=== PATIENT | male | born 1970 | race Caucasian/White ===

== ENCOUNTER 2020-03-09 15:50 | Emergency (ER) | payer BC, SELFPAY ==
--- NOTE | ~2020-03-09 | XR_ITS ---
EXAMINATION: XR foot RT min 3V DATE: 03/09/2020 16:16 INDICATION: Heel pain post fall in the shower. TECHNIQUE: Dorsoplantar, two oblique and lateral views of the right foot were obtained. COMPARISON: Right foot radiographs dated 04/01/2017 FINDINGS: Bone alignment is normal. No fracture. Extensive scattered bulky enthesophytes including at the [place] origin of the Achilles tendon and plantar aponeurosis, at the lateral base of the first proximal phalanx at the tip of the lateral malleolus and at the dorsal capsule insertions of the tarsal bones . Additional small enthesopathic ossicle in the occipital plantar aponeurosis. Soft tissues are unrem arkable. IMPRESSION: 1. Stable appearance of prominent scattered enthesophytes throughout the right foot. No acute osseous abnormality. Reviewed, dictated and finalized at location A.
[2020-03-09 16:00] VITALS: BP 180/86; PULSE 90; RESP 20; TEMP 36.7; O2SAT 99
--- NOTE | 2020-03-09 16:12 | ED.GENADULT ---
HPI - General Adult General Chief complaint: Extremity Injury, Lower Stated complaint: lower extremity/pain and swelling Time Seen by Provider: 03/09/20 16:13 Source: patient and RN notes reviewed Limitations: no limitations History of Present Illness HPI narrative: 50-year-old male presents today with complaints of right heel-foot pain and swelling for the past 3 day. Mikhail says he was hit on the heel of RT foot with a grocery cart causing injury to RT heel-foot. Advil, last several hours ago with little relief. History of a non-mobile bony prominence area on Achilles tendon causing pain when he wears his working boots. Hurts to bear weight. No radiation of pain. No numbness, tingling, or loss of mobility. Exacerbating factor applying weight. Denies inability to bear weight. Denies discoloration. Denies suspect foreign body. Denies fever or chills. The patient reports he have not been diagnosed with COVID-19. The patient reports he is not waiting for the results of a COVID-19 lab test. The patient reports he do not have fever, chills, weakness, or fatigue. The patient reports he do not have a new or worsening cough or shortness of breath. Denies chest pain. The patient reports he do not have any rhinorrhea, congestion, sore throat, loss of taste, nausea, vomiting, abdominal pain, and diarrhea. Tolerating po intake well. Denies recent traveling. Denies concerns for COVID-19 or exposures been home with limited outdoor exposure except for essential household needs, work, and return home. At this time, patient is not suspected of having COVID-19. Some parts of this dictation were generated by voice recognition software and may contain typographical and/or grammatical inaccuracies. Related Data Allergies Allergy/AdvReac Type Severity Reaction Status Date / Time No Known Allergies Allergy Unverified 09/06/17 13:31 Review of Systems Review of Systems: Narrative: CONSTITUTIONAL: Denies fever, chills, sweats. EYES: Denies visual changes, redness, discharge. ENT: Denies rhinorrhea, congestion, sore throat, otalgia. CARDIOVASCULAR: Denies chest pain, palpitations, edema. RESPIRATORY: Denies dyspnea, wheezing, cough. GASTROINTESTINAL: Denies abdominal pain, nausea, vomiting, diarrhea. GENITOURINARY: Denies dysuria, hematuria, abnormal discharge. SKIN: Denies rash or itching. MUSCULOSKELETAL: Denies acute back pain or myalgia. Complains of pain and swelling to right heel-foot. NEUROLOGIC: Denies numbness or focal weakness. PSYCHIATRIC: Denies anxiety or depression. All other systems reviewed are negative, except as documented in HPI and below. [facility] Past Medical History Medical History (Updated 03/10/20 @ 00:00 by Nan Lyons) Back pain Back pain with history of spinal surgery Knee pain Morbid obesity Surgical History Surgical History (Updated 03/09/20 @ 17:00 by VITALIY Lucio) History of arthroscopic knee surgery Right knee History of knee surgery Left knee History of spinal surgery Family History Family History (Updated 03/09/20 @ 17:00 by VITLAIY Lucio) Father Acute myocardial infarction Mother Acute myocardial infarction Diabetes mellitus Social History Social History (Updated 03/09/20 @ 17:01 by VITALIY Lucio) Smoking status: Never smoker Tobacco type: cigarettes Second hand tobacco smoke exposure: Yes Alcohol intake: current Substance use: never Living arrangements: with family Occupation/Education: occupation Gender identity (if verbalized by the patient): Male Sexual Orientation (if Verbalized by the Patient): Straight or Heterosexual Comments At time of signature, agree with nurse past medical, surgical, social, and family history. There is relevant patient's past medical history pertinent to the presenting complaint, no relevant family history pertinent to the presenting complaint. Exam Narrative: Exam Narrative: GEN
[2020-03-09 16:33] VITALS: BP 150/82
== END 2020-03-09 16:49 | disposition home or self-care (01) ==
PROVIDERS: Emergency Provider Nurse Practitioner Family
DX: M77.9 Enthesopathy, unspecified (principal); S90.31XA Contusion of right foot, initial encounter; X58.XXXA Exposure to other specified factors, initial encounter; E66.01 Morbid (severe) obesity due to excess calories
CPT/HCPCS: 73630; 99213; G0463